=== PATIENT | male | born 1990 | race Caucasian/White ===

== ENCOUNTER 2019-11-02 21:37 | Emergency (ER) | payer SELFPAY ==
[2019-11-02 21:37] VITALS: BP 143/66; PULSE 61; RESP 16; TEMP 36.8; O2SAT 97; BMI 21.7
--- NOTE | 2019-11-02 21:49 | ED.VISSUMM ---
- ER Visit Summary Date of Service: 11/02/19 Chief Complaint: Dental pain History of Present Illness: The patient is a 29 M who presents with right upper dental pain that became worse tonight. Patient states that after dinner tonight he was using a toothpick and thinks he broke a piece of his tooth off. Patient thinks he exposed the nerve. Patient states the pain radiates into his head. Patient describes the pain as stabbing and aching. Patient states nothing makes it better or worse. Patient denies any fevers or chills. Patient denies any hot or cold sensitivity. Patient states he does not have a dentist. Physical Examination: Vital signs are stable. Patient is afebrile. Patient is in no acute distress. Oral mucosa is pink and moist. There is a large dental carry noted over the right upper second molar. There is some mild gingival edema around this tooth. There are other dental caries over the upper and lower molars bilaterally. There is no evidence of any abscess. Oropharynx is clear. There is no sublingual edema. Neck is supple. Trachea is midline. There is no JVD. Cranial nerves II through XII are intact. There are no focal motor or sensory deficits noted. Emergency Department Course and Treatment: Patient was given a dose of Pen-Vee K here. Patient was given a prescription for Pen-Vee K. Patient was instructed to take ibuprofen or Tylenol as needed for pain. Patient was instructed to follow-up with a dentist in 5 to 7 days. Patient understood and was agreeable with the plan. All questions were answered. Disposition: Discharge home Impression: Infected dental caries This note was generated with [employer] dictation software. It may contain incorrect words, spelling, and punctuation that were not noted in review of the chart prior to signing ED Disposition - Plan for ED Patient: Disposition: Home or Assisted Living Diagnosis: Infected dental caries Instructions: Dental Cavity Prescriptions: Penicillin V Potassium 500 mg PO 4X/DAY #40 tab Prescription Printed Referrals: Willa Galicia MD [Primary Care Provider] - 5-7 Days
[2019-11-02 21:52] VITALS: BP 135/70; PULSE 65; RESP 14; O2SAT 98
[2019-11-02] MEDS: Penicillin Vk 250 MG Tablet 500 MG PO (22:11)
[2019-11-02] MEDS: Ibuprofen 400 MG Tablet 800 MG PO (22:11)
[2019-11-02 22:12] VITALS: BP 132/70; PULSE 60; RESP 15; O2SAT 97
== END 2019-11-02 22:14 | disposition home or self-care (01) ==
LOC: ED 22:06
PROVIDERS: Emergency Provider Emergency Medicine; PCP Family Medicine
DX: K04.7 Periapical abscess without sinus (principal); F17.200 Nicotine dependence, unspecified, uncomplicated
CPT/HCPCS: 99283

== ENCOUNTER 2021-05-15 18:40 | Emergency (ER) | payer SELFPAY ==
[2021-05-15 18:41] VITALS: BP 142/75; PULSE 64; RESP 14; TEMP 37.3; O2SAT 97; BMI 21.7
[2021-05-15 18:42] VITALS: BP 142/75; PULSE 64; RESP 14; TEMP 37.3; O2SAT 97
--- NOTE | 2021-05-15 20:38 | EDS_ITS ---
HPI History of Present Illness Chief Complaint: Dental Informant: patient Onset/Context/Timing Onset: Today Context: Gradual Onset Timing: Continuous Quality: Ache and throb Location: Right mandibular wisdom tooth Current Severity: Moderate Maximum Severity: Severe Worsened by: Eating Relieved by: - (Nothing tried NSAIDs) Associated Symptoms Assocated Symptom - Dental: Negative for fever, jaw swelling or face swelling Narrative Narrative: Patient states he has been having trouble with his wisdom tooth for couple years and it is hurting a lot more than usual today, he thought maybe he had some food stuck in it. PFSH PFSH no medical history Home Medications amoxicillin 500 mg PO TID #30 tab 05/15/21 [Rx Last Taken Unknown] tramadol 50 mg PO Q4H PRN PRN 2 Days #12 tab 05/15/21 [Rx Last Taken Unknown] Allergy/AdvReac Type Severity Reaction Status Date / Time No Known Allergies Allergy Verified 05/15/21 18:40 Social History Smoking Status: Current every day smoker ROS ROS ED Constitutional Constitutional ED: Denies chills or fever(s) Eyes Eyes: Denies change in vision or double vision ENT ENT ED: Reports dental pain; Denies sinus pain or throat swelling Cardiovascular Cardiovascular: Denies chest pain or palpitations Respiratory/Chest Respiratory/Chest: Denies cough or dyspnea Integumentary Denies abscess or rash Neurologic Neurologic: Denies headache(s), paresthesias or weakness EXAM Physical Exam Const Vital Signs: 05/15/21 18:41 05/15/21 18:42 Temperature 99.2 F H 99.2 F H Temperature Source Temporal Temporal Pulse Rate 64 64 Respiratory Rate 14 14 Blood Pressure 142/75 H 142/75 H Blood Pressure Mean 97 97 Pulse Ox 97 97 Oxygen Delivery Method Room Air Room Air Positive well nourished and well developed General Appearance ED: well developed and NAD HEENT HEENT Narrative: Tender tooth #32, which is decayed at its anterior aspect bet ween it and tooth #31. No discharge or bleeding. No gingivitis. No abscess. Tooth is only partially erupted. No trismus. Face and Sinus: sinuses nontender Throat: posterior oropharynx normal Eyes PERRL and EOMs intact bilaterally Neck no lymphadenopathy and supple Resp normal respiratory effort Neuro oriented x3 and CN's II-XII intact bilaterally Sensorium / Orientation: alert Gait (Neuro): normal gait Psych mental status grossly normal and thought process normal Skin no rashes or lesions noted and no wounds MDM MDM MDM Narrative Medical decision making narrative: Patient's OAR[facility] report is unremarkable. He was given a tramadol here as he just took anti-inflammatory, as well as amoxicillin and referred to dentistry/OMFS. Possibly early infection, no abscess noted. Discharge Plan Triage Chief Complaint: Dental ED Provider: Marcus Carroll Dx/Rx/DC Orders Clinical Impression: Odontalgia, Dental decay Instructions: ED Dental Pain, ED Dental Cavity Prescriptions: New tramadol 50 MG tablet 50 mg PO Q4H PRN PRN (Reason: Pain) 2 Days Qty: 12 RF: 0 amoxicillin 500 MG tablet 500 mg PO TID Qty: 30 RF: 0 Primary Care Provider: Care Physician,No Primary Referrals: Memo Banerjee DDS [STAFF PHYSICIAN] - (Oral surgeon for evaluation for tooth extraction) Care Physician,No Primary [Primary Care Provider] - Dentist,Your [STAFF PHYSICIAN] - As soon as possible (See attached resource list as needed) Disposition Disposition: Home, Self Care
[2021-05-15] MEDS: AMOXICILLIN 500 MG CAPSULE PO (20:44)
[2021-05-15] MEDS: traMADol 50 MG Tablet PO (20:44)
[2021-05-15 20:45] VITALS: BP 138/78; PULSE 65; RESP 16; TEMP 36.8
== END 2021-05-15 20:52 | disposition home or self-care (01) ==
PROVIDERS: Emergency Provider Emergency Medicine
DX: K02.9 Dental caries, unspecified (principal); K08.89 Other specified disorders of teeth and supporting structures; F17.200 Nicotine dependence, unspecified, uncomplicated
CPT/HCPCS: 99283

== ENCOUNTER 2021-06-07 16:31 | Emergency (ER) | payer MEDICARE, SELFPAY ==
[2021-06-07 16:32] VITALS: BP 150/86; PULSE 98; RESP 8; TEMP 36.6; O2SAT 99; BMI 21.7
--- NOTE | 2021-06-07 19:03 | EDS_ITS ---
HPI History of Present Illness Chief Complaint: General Illness Informant: patient Narrative Narrative: Patient is concern for Covid. He states he has had some fevers chills. Some malaise. Loss of taste and smell. He has no nausea vomiting or diarrhea. His appetite might be somewhat down though. He states he has no pulmonary symptoms at all. No cough or congestion or stuffed up nose. He does have exposure to 2 people with Covid. He did not get immunizations. He denies any chronic medical conditions or immunosuppression. [facility] PFS Home Medications NK 06/07/21 [History Last Taken Unknown] Allergy/AdvReac Type Severity Reaction Status Date / Time No Known Allergies Allergy Verified 06/07/21 17:33 Social History Smoking Status: Current every day smoker tobacco type: cigarettes ROS ROS ED Constitutional Constitutional ED: Reports fever(s); Denies weight loss Eyes Eyes: Denies blurry vision ENT ENT ED: Denies ear pain, rhinorrhea or sore throat Cardiovascular Cardiovascular: Denies chest pain or palpitations Respiratory/Chest Respiratory/Chest: Denies cough, dyspnea, dyspnea on exertion or sputum Gastrointestinal Gastrointestinal: Denies abdominal pain, nausea or vomiting Genitourinary Genitourinary ED: Denies dysuria or hematuria Musculoskeletal Musculoskeletal: Denies back pain Integumentary Denies rash Neurologic Neurologic: Denies headache(s) or weakness Psychiatric Psychiatric: Denies depression Endocrine Endocrinology: Denies polydipsia or polyuria Allergic/Immunologic Allergic/Immunologic ED: Denies urticaria EXAM Physical Exam Const Vital Signs: 06/07/21 16:32 06/07/21 17:32 Temperature 98 F Temperature Source Temporal Pulse Rate 98 Respiratory Rate 8 L Respiratory Effort Normal Non-Labored Respiratory Pattern Normal Blood Pressure 150/86 H Blood Pressure Mean 107 Pulse Ox 99 Oxygen Delivery Method Room Air Positive well nourished and well developed General Appearance ED: well developed and NAD HEENT Negative for trauma or tenderness Eyes Negative for PERRL or EOMs intact bilaterally Neck No no lymphadenopathy and No no JVD Resp normal respiratory effort and clear to auscultation bilaterally Effort and Inspection: Negative for pain with movement Auscultation: Negative for rales, rhonchi, wheezes or diminished lung sounds Cardio regular rate and regular rhythm GI normal to inspection, nondistended, normoactive bowel sounds and non-tender Palpation: soft Back/Spine no CVA tenderness Extremity normal to inspection General Extremety ED: Negative for edema or tenderness General Extremity: Negative for edema Neuro oriented x3 Sensorium / Orientation: alert Psych mental status grossly normal Skin no rashes or lesions noted MDM MDM MDM Narrative Medical decision making narrative: Patient's Covid is positive. Patient is not hypoxic nor does he have pulmonary symptoms. He is eating and drinking. He is not immunosuppressed. We discussed reasons to return, home therapy and isolation of himself from others to avoid spread. Discharge Plan Triage Chief Complaint: General Illness ED Provider: Arjun Kirby Dx/Rx/DC Orders Clinical Impression: COVID-19 Instructions: Caring for Someone Who Has COVID-19 Prescriptions: No Action NK RF: 0 Primary Care Provider: Care Physician,No Primary Referrals: Care Physician,No Primary [Primary Care Provider] - Disposition Disposition: Home, Self Care
[2021-06-07 19:19] VITALS: O2SAT 95
== END 2021-06-07 19:19 | disposition home or self-care (01) ==
PROVIDERS: Emergency Provider Emergency Medicine
DX: U07.1 COVID-19 (principal); F17.210 Nicotine dependence, cigarettes, uncomplicated
CPT/HCPCS: 87426; 99282

== ENCOUNTER 2021-08-24 09:07 | Emergency (ER) | payer MEDICARE, SELFPAY ==
[2021-08-24 09:08] VITALS: BP 143/95; PULSE 106; RESP 16; TEMP 38.5; O2SAT 95; BMI 21.7
[2021-08-24] MEDS: Ondansetron ODT 4 MG Tablet PO (09:56)
--- NOTE | 2021-08-24 10:00 | RAD_ITS ---
STUDY: X-RAY CHEST REASON FOR EXAM: Male, 30 years old. Cough. TECHNIQUE: Single AP portable view of the chest. COMPARISON: None. FINDINGS: The lungs are somewhat hyperinflated. No focal infiltrate is seen. There is no demonstrated pleural abnormality. Normal size heart. Normal mediastinum and michell. Normal visualized pulmonary arteries. Normal visualized aortic arch and descending thoracic aorta. Normal visualized thoracic spine. Normal visualized ribs, clavicles, and shoulders. There is no demonstrated abnormality of the visualized soft tissue structures of the upper abdomen. RAD/Chest 1 View (Portable) IMPRESSION: No active pulmonary disease. Electronically Signed: Jerman Sampson, at 10:27 EST Tel , Service support ,
--- NOTE | 2021-08-24 10:18 | EDS_ITS ---
HPI HPI - URI History of Present Illness Chief Complaint: Sore Throat Informant: patient Narrative Narrative: Patient presents with URI symptoms. This patient did have Covid back in early May. He states those symptoms completely resolved. 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 He does not know if he had Covid. Patient started with some nasal congestion and slight nonproductive cough about 3 or 4 days ago. He had some nausea and vomiting last night that seemed mostly posttussive but not only. He states he is really not nauseated now. He might be just a little bit. He has no abdominal pain. He does have a sore throat. Nothing specifically makes his symptoms better or worse. ROS ROS ED Constitutional Constitutional ED: Reports subjective Eyes Eyes: Denies change in vision ENT ENT ED: Reports sore throat; Denies rhinorrhea Cardiovascular Cardiovascular: Denies chest pain Respiratory/Chest Respiratory/Chest: Reports cough; Denies dyspnea, dyspnea on exertion or sputum Gastrointestinal Gastrointestinal: Reports nausea and vomiting; Denies abdominal pain or diarrhea Genitourinary Genitourinary ED: Denies dysuria Musculoskeletal Musculoskeletal: Denies myalgias Integumentary Denies rash Neurologic Neurologic: Denies headache(s), paresthesias or weakness Psychiatric Psychiatric: Denies depression Endocrine Endocrinology: Denies polyuria Hematologic/Lymphatic Hematologic/Lymphatic: Denies easy bleeding or easy bruising Allergic/Immunologic Allergic/Immunologic ED: Denies urticaria PFSH PFSH Home Medications ondansetron 4 mg PO Q8H PRN #10 tab 08/24/21 [Rx Last Taken Unknown] Allergy/AdvReac Type Severity Reaction Status Date / Time No Known Allergies Allergy Verified 08/24/21 09:08 Social History Smoking Status: Current every day smoker tobacco type: cigarettes EXAM Physical Exam Const Vital Signs: 08/24/21 09:08 Temperature 101.3 F H Temperature Source Temporal Pulse Rate 106 H Respiratory Rate 16 Blood Pressure 143/95 H Blood Pressure Mean 111 Pulse Ox 95 Oxygen Delivery Method Room Air Positive well nourished and well developed General Appearance ED: well developed and NAD; Negative for cyanotic or diaphoretic HEENT HEENT Narrative: Patient has some mild throat erythema but no exudate. Voice is normal. Swallowing is normal. No abscess or asymmetry. No indication of Ludewig's angina. normocephalic and atraumatic External Ear: external ears normal Eyes PERRL and EOMs intact bilaterally Neck no lymphadenopathy, supple, no meningeal signs and no JVD Resp normal respiratory effort and clear to auscultation bilaterally Auscultation: Negative for rales, rhonchi or wheezes Cardio Rate: regular rate Rhythm: regular rhythm GI non-tender Palpation: soft Back/Spine no CVA tenderness and normal ROM Neuro oriented x3 Sensorium / Orientation: alert Psych mental status grossly normal Skin Lesions: no lesions Rashes: no rashes MDM MDM MDM Narrative Medical decision making narrative: Patient's strep and Covid are negative. X-ra y shows no acute process. Patient has exposure to similar symptoms at work. He likely has a viral illness. At this time I do not see indication for further work-up or antibiotics. I will write him for some Zofran even though his nausea seems already improved. We discussed reasons to return including sputum production, continuing fevers, inability to keep fluids down or other concerns. Lab Data Attestation: I reviewed the patient's lab results. Radiography Diagnostic Testing: Clinical Impression(s) from Imaging Studies Chest X-Ray 08/24/21 10:00 IMPRESSION: No active pulmonary disease. Electronically Signed: Jerman Sampson, at 10:27 EST Tel , Service support , Discharge Plan Triage Chief Complaint: Sore Throat ED Provider: Arjun Kirby Dx/Rx/DC Orders Clinical Impression: Viral URI, Nausea & vomiting Instructions: ED URI, Viral, No Abx (Adult), ED Vomiting (Adult) Prescriptions: New ondansetron 4 mg tablet,disintegrating 4 mg PO Q8H PRN (Reason: nausea and vomiting) Qty: 10 RF: 0 Primary Care Provider: Care Physician,No Primary Referrals: Edith Coronado MD [STAFF PHYSICIAN] - 3-5 Days if not improving Care Physician,No Primary [Primary Care Provider] - Disposition Disposition: Home, Self Care
== END 2021-08-24 11:51 | disposition home or self-care (01) ==
PROVIDERS: Emergency Provider Emergency Medicine
DX: J06.9 Acute upper respiratory infection, unspecified (principal); R11.2 Nausea with vomiting, unspecified; Z86.16 Personal history of COVID-19; F17.210 Nicotine dependence, cigarettes, uncomplicated
CPT/HCPCS: 71045; 87426; 87880; 99282

== ENCOUNTER 2024-12-04 23:52 | Emergency (ER) | payer SELFPAY ==
[2024-12-04 23:52] VITALS: BP 153/89; PULSE 78; RESP 16; TEMP 36.6; O2SAT 97; BMI 22.6
--- NOTE | 2024-12-05 00:01 | ED.VIS.DENTA ---
HPI History of Present Illness Chief Complaint: Dental PFSH PFS Medical History no medical history Home Medications ?Medication ?Instructions ?Recorded ?Last Taken ?Type NK 12/04/24 Unknown History Allergy/AdvReac Type Severity Reaction Status Date / Time No Known Allergies Allergy Verified 12/04/24 23:53 Social History Smoking Status: Current every day smoker tobacco type: cigarettes EXAM Physical Exam Const Vital Signs: 12/04/24 23:52 Temperature 98 F Temperature Source Temporal Pulse Rate 78 Respiratory Rate 16 Blood Pressure 153/89 H Blood Pressure Mean 110 Pulse Ox 97 Oxygen Delivery Method Room Air MDM MDM MDM Narrative Medical decision making narrative: HISTORY OF PRESENT ILLNESS: 34-year-old here with right lower dental pain. He notes he does have a dentist. Notes he took ibuprofen approximately 30 minutes prior to arrival. No severe pain began 30 minutes prior to arrival. No vomiting or fever noted. No neck stiffness REVIEW OF SYSTEMS: Pertinent positives: Dental pain Pertinent negatives: Vomiting or fever PHYSICAL EXAM: Nursing triage notes reviewed, Vital signs reviewed Constitutional: please see mdm HENT: MMM, no submental edema Eyes: Pupils equal round and reactive to light, Extraocular muscles intact MEDICAL DECISION MAKING: Chief Complaint: Dental pain External records reviewed: Reviewed prior ED note Factors affecting care: History of dental pain Social determinants of health: none History obtained from others: none Consults: none [facility] Narrative: The patient was initially hemodynamically stable, afebrile and nontoxic-appearing. Very poor dentition. Noted complete erosion of right posterior molar tooth number 31. Perform dental block. Performed inferior alveolar block with improvement in pain. I used 0.5% bupivacaine. Gave local dental resources. Prescribed augmentin for initial antimicrobial prophylaxis. Procedure: Right infraorbital block Consent: Verbal Intact right-sided temporal nerve function prior to procedure Sterilization: Sterilization new secondary to intraoral location Needle: Used a 23-gauge needle Medicine: Used 3 ccs of 0.5% bupivacaine Complications: No complications noted. Patient tolerated procedure well. Noted complete improvement in pain. Ibuprofen Tylenol discussed. The patient and/or family, caregivers express understanding. The patient and/or family, caregivers agrees with the plan. Shared decision making: I will have a discussion with the patient and or visitors regarding risk/benefits of further testing or admission. They will be made aware of of the risk/benefits inherent in this decision they will be given the opportunity to voice understanding. Total critical care time today provided was at least 0 minutes. This excludes separately billable procedures. Critical care time (if documented) is secondary to the patient having high probability of clinically significant/life threatening deterioration in the patient's condition which required my urgent intervention. Impression: 1. Acute dental pain 2. Dental caries Dispo: Discharge This note was generated with [employer] dictation software. It may contain incorrect words, spelling, and punctuation that were not noted in review of the chart prior to signing. Discharge Plan Triage Chief Complaint: Dental ED Provider: Dexter Self Dx/Rx/DC Orders Clinical Impression: Odontalgia, Dental decay Instructions: ED Dental Pain Prescriptions: No Action NK Primary Care Provider: Care Physician,Nya Primary Referrals: Bahman Garza MD [[facility] Staff - [employer]lectric Machine Operator] - Activity Restrictions/Additional Instructions: Thank you for trusting us with your care today! Please take Tylenol (2 pills, 650 mg), ibuprofen (2 pills, 400 mg) every 6 hours as needed for pain and fever control. Please return to the emergency department if your symptoms change or worsen. Please follow with your primary care physician for further outpatient evaluation and management. Please follow local dental resources Print Language: [place] Disposition Disposition: Home, Self Care Discharge Date/Time: 12/05/24 00:31
== END 2024-12-05 00:31 | disposition home or self-care (01) ==
PROVIDERS: Emergency Provider Emergency Medicine; Visit Provider Emergency Medicine
DX: K08.89 Other specified disorders of teeth and supporting structures (principal); K02.9 Dental caries, unspecified; F17.210 Nicotine dependence, cigarettes, uncomplicated
CPT/HCPCS: 64400; 99283